=== PATIENT | male | born 1935 | race Caucasian/White ===

== ENCOUNTER 2017-10-24 12:56 | Outpatient (CLI) | payer MEDICARE, OTHER ==
--- NOTE | 2017-10-24 14:56 | RAD ---
TWO VIEWS CHEST: History: Dyspnea. Comparison: None. FINDINGS: Slight elongation of the aorta. Normal cardiac silhouette. The pulmonary vessels and hilum are normal . Costophrenic angles are clear. No mass. No consolidation. No pneumothorax or osseous abnormality. IMPRESSION: No acute cardiopulmonary process. POS: [facility]
== END 2017-10-24 12:57 | disposition home or self-care (01) ==
LOC: RAD 12:56
PROVIDERS: ATTEND Internal Medicine Critical Care Medicine
DX: R06.00 Dyspnea, unspecified (principal)
CPT/HCPCS: 71046

== ENCOUNTER 2019-11-12 08:06 | Outpatient (CLI) | payer MEDICARE, OTHER ==
[2019-11-12 14:33] LABS: Hemoglobin 15.1 g/dL (14.0-18.0); Mean Corpuscular HGB CONC 34.2 g/dL (32.0-36.0); Mean Corpuscular Volume 96.4 fL (78.0-98.0); Mean Platelet Volume 7.5 fL (7.4-10.4); Platelet Count 137 thou/uL (130-400); RBC Distribution Width 11.8 % (11.5-14.5); Red Blood Cell (RBC) Count 4.59 mill/uL (4.70-6.10); White Blood Cell (WBC) Count 4.3 thou/uL (4.8-10.8)
[2019-11-12 15:15] LABS: Anion Gap 14 mmol/L (10-20); BUN (Urea Nitrogen) 24 mg/dL (8.4-25.7); Calc. Creatinine Clearance 0 mL/min (70-130); Calcium 9.3 mg/dL (7.8-10.44); Carbon Dioxide 24 mmol/L (23-31); Chloride 106 mmol/L (98-107); Estimated GFR-MDRD 56; Glucose 102 mg/dL (83-110); Potassium 5.1 mmol/L (3.5-5.1); Sodium 139 mmol/L (136-145)
== END 2019-11-12 08:07 | disposition home or self-care (01) ==
LOC: LABBT 08:06
PROVIDERS: ATTEND Thoracic Surgery (Cardiothoracic Vascular Surgery)
DX: Z01.812 Encounter for preprocedural laboratory examination (principal); I25.10 Atherosclerotic heart disease of native coronary artery without angina pectoris
CPT/HCPCS: 80048; 85027

== ENCOUNTER 2019-11-12 11:00 | Inpatient (IN) | payer MEDICARE, OTHER ==
[2019-11-13 12:33] LABS: SARS-CoV-2 MS2 Positive; SARS-CoV-2 N Gene Negative; SARS-CoV-2 S Gene Negative; SARS-CoV-2 by NAA Not Detected (NotDetected); SARS-CoV-2 orf1ab Negative
[2019-11-17] MEDS ORDERED: Albumin 5% 500 ML ONE (06:29)
[2019-11-17] MEDS ORDERED: Fentanyl 250 MCG/5 ML VIAL ONE (06:43)
[2019-11-17] MEDS ORDERED: Dexmedetomidine 200 MCG/2 ML VIAL ONE (06:44)
[2019-11-17] MEDS ORDERED: Midazolam HCl 5 mg/5 ml Vial ONE (06:44)
[2019-11-17] MEDS ORDERED: Heparin 10,000 UNITS/1 ML VIAL 30,000 UNITS in Sodium Chloride 0.9% 1,000 ML FS SCH (06:45)
[2019-11-17] MEDS ORDERED: PHENYLEPHRINE-NS 100 MCG/ML 10 ML SYRINGE ONE (09:06)
[2019-11-17] MEDS ORDERED: Glycopyrrolate 0.2 MG/ML 5 ML SYRINGE ONE (09:37)
[2019-11-17] MEDS ORDERED: Calcium Chloride 1 GM/10 ML Abboject SYRINGE ONE (09:37)
[2019-11-17] MEDS ORDERED: Magnesium Sulfate 1 GM/2 ML VIAL ONE (09:37)
[2019-11-17] MEDS ORDERED: Protamine Sulfate 250 MG/25 ML VIAL ONE (09:37)
[2019-11-17] MEDS ORDERED: Papaverine 60 MG/2 ML VIAL ONE (09:37)
[2019-11-17] MEDS ORDERED: Ondansetron PF 4 MG/2 ML Vial ONE (09:37)
[2019-11-17] MEDS ORDERED: PROPOFOL 200 MG/20 ML VIAL ONE (09:37)
[2019-11-17] MEDS ORDERED: Thrombin 5000 UNITS/5 ML VIAL ONE (09:37)
[2019-11-17] MEDS ORDERED: Cardioplegic Soln 1,000 ML BAG ONE (09:37)
[2019-11-17] MEDS ORDERED: Lidocaine 2% PF 5 ML VIAL ONE (09:37)
[2019-11-17] MEDS ORDERED: Heparin 30,000 units/30 ml VIAL ONE (09:37)
[2019-11-17] MEDS ORDERED: Nitroglycerin 50 MG/250 ML BOT ONE (09:37)
[2019-11-17] MEDS ORDERED: Heparin 5,000 UNITS/ML VIAL ONE (09:37)
[2019-11-17] MEDS ORDERED: Lidocaine 1% PF 5 ML VIAL ONE (09:37)
[2019-11-17] MEDS ORDERED: Sodium Bicarb 50 MEQ/50 ML Abboject 8.4% SYRINGE ONE (09:37)
[2019-11-17] MEDS ORDERED: Potassium Chloride 60 MEQ/30 ML VIAL ONE (09:37)
[2019-11-17] MEDS ORDERED: Aminocaproic Acid 5 GM/20 ML VIAL ONE (09:37)
[2019-11-17] MEDS ORDERED: Vecuronium 10 MG VIAL ONE (09:37)
[2019-11-17] MEDS ORDERED: Norepinephrine 4 MG/4 ML VIAL ONE (09:40)
[2019-11-17] MEDS ORDERED: Magnesium 2 GM/50 ML 2 GM in Premix Bag 1 BAG IVPB SCH (11:18)
[2019-11-17] MEDS ORDERED: Nitroglycerin 50 MG/250 ML BOT 250 ML IVPB PRN (11:18)
[2019-11-17] MEDS ORDERED: DOPamine 400 MG/D5W 250 ML 250 ML IVPB PRN (11:18)
[2019-11-17] MEDS ORDERED: Acetaminophen 325 MG TAB PO PRN (11:18)
[2019-11-17] MEDS ORDERED: Ondansetron PF 4 MG/2 ML Vial IVP PRN (11:18)
[2019-11-17] MEDS ORDERED: Hetastarch 6% 500 ML 500 ML IVPB PRN (11:18)
[2019-11-17] MEDS ORDERED: Morphine 2 MG/ML VIAL SLOW IVP PRN (11:18)
[2019-11-17] MEDS ORDERED: Potassium Chloride 20 MEQ/100 ML PREMIX BAG IVPB PRN (11:18)
[2019-11-17] MEDS ORDERED: Norepinephrine 8 MG/0.9% NS 250 ML IVPB PRN (11:18)
[2019-11-17] MEDS ORDERED: hydrALAZINE 20 MG/ML VIAL SLOW IVP PRN (11:18)
[2019-11-17] MEDS ORDERED: Guaifenesin DM 100-10/5 ML UDCUP PO PRN (11:18)
[2019-11-17] MEDS ORDERED: Bisacodyl 10 MG SUPP PR PRN (11:18)
[2019-11-17] MEDS ORDERED: Mag-Al 1200 mg/1200 mg/30 ML UDCUP PO PRN (11:18)
[2019-11-17] MEDS ORDERED: Post-Op Insulin Drip Protocol IVPB ONE (11:18)
[2019-11-17] MEDS ORDERED: Fentanyl 100 MCG/2 ML VIAL SLOW IVP PRN ×2 (11:18)
[2019-11-17] MEDS ORDERED: niCARdipine 25 MG in Sodium Chloride 0.9% 250 ML 240 ML IVPB PRN (11:18)
[2019-11-17] MEDS ORDERED: Insulin Regular 300 UNITS/3 ML VIAL SC PRN (11:21)
[2019-11-17] MEDS ORDERED: HUMULIN R 100 UNITS in Sodium Chloride 0.9% 100 ML IVPB SCH (11:21)
[2019-11-17] MEDS ORDERED: Dextrose 5% in Water 1,000 ML IV PRN (11:21)
[2019-11-17] MEDS ORDERED: Dextrose 50% Abboject 50 ML SYRINGE SLOW IVP PRN (11:21)
[2019-11-17] MEDS: Sodium Chloride 0.9% 1,000 ML IV SCH ×2 (12:00→21:09)
--- NOTE | 2019-11-17 12:06 | RAD ---
XR Chest 1 View Portable HISTORY: Postop open heart surgery COMPARISON: 10/24/2017 FINDINGS: Interval changes of median sternotomy are seen. There is a right-sided subclavian central venous cath eter with tip in the projection of the right atrium. Mediastinal drain and left-sided chest tubes have been placed. No pneumothoraces or large effusions are seen. There is atelectatic change in the l eft lung base.
[2019-11-17 12:26] LABS: INR-International Normal Ratio 1.4; PTT 40.4 sec (22.9-36.1); Prothrombin Time 16.8 sec (12.0-14.7)
[2019-11-17 12:38] LABS: Anion Gap 10 mmol/L (10-20); BUN (Urea Nitrogen) 22 mg/dL (8.4-25.7); Calc. Creatinine Clearance 60 mL/min (70-130); Calcium 7.6 mg/dL (7.8-10.44); Carbon Dioxide 24 mmol/L (23-31); Chloride 111 mmol/L (98-107); Estimated GFR-MDRD 66; Glucose 156 mg/dL (83-110); Potassium 4.6 mmol/L (3.5-5.1); Sodium 140 mmol/L (136-145)
[2019-11-17 12:43] VITALS: BMI 30.2
[2019-11-17 12:49] LABS: #Eosinphils 0.1 thou/uL (0.0-0.7); #Lymphocytes 1.4 thou/uL (1.20-3.40); #Monocytes 0.6 thou/uL (0.11-0.59); #Neutrophils 5.8 thou/uL (1.40-6.50); %Basophils 0.4 % (0.0-1.0); %Eosinophils 1.5 % (0.0-10.0); %Lymphocytes 18.1 % (21.0-51.0); %Monocytes 7.3 % (0.0-10.0); %Neutrophils 72.7 % (42.0-75.0); Band 11 % (5-11); Eosinophils 3 % (0-10); Hemoglobin 12.4 g/dL (14.0-18.0); Lymphocytes 20 % (21-51); MDiff Complete? YES; Mean Corpuscular HGB CONC 33.5 g/dL (32.0-36.0); Mean Corpuscular Hemoglobin 32.3 pg (27.0-31.0); Mean Corpuscular Volume 96.5 fL (78.0-98.0); Mean Platelet Volume 7.5 fL (7.4-10.4); Metamyelocyte 1 % (0-0); Monocytes 1 % (0-10); Neutrophil 64 % (42-75); Platelet Count 83 thou/uL (130-400); Platelet Morphology Comment Appears Decreased; Polychromasia SLIGHT = 2-3 cells (100X) (0-2/hpf); RBC Distribution Width 11.7 % (11.5-14.5); Red Blood Cell (RBC) Count 3.84 mill/uL (4.70-6.10)
[2019-11-17 13:05] LABS: Actual Bicarbonate (HCO3a) 22.4 mEq/L (22-28); Base Excess (BEa) -3.5 mEq/L (-2.0 to +3.0); CO2 Tension 43.5 mmHg (35.0-45.0); Calcium, Ionized (arterial) 1.14 mmol/L (1.12-1.30); Hemoglobin (Hb) 13.2 g/dL (14.0-18.0); O2 Tension (PaO2), arterial 129.1 mmHg (> 60.0); Potassium - ABG Lab 4.06 mmol/L (3.70-5.30); pH, Arterial 7.33 (7.35-7.45)
[2019-11-17 13:06] LABS: ALV-art Gradient 244.325 (0-20); Puncture Site ALINE
[2019-11-17] MEDS: CEFAZOLIN 2 GM in Premix Bag 1 BAG IVPB SCH ×2 (13:53→21:12)
--- NOTE | 2019-11-17 17:21 | CON ---
DATE OF CONSULTATION: 11/17/2019 HISTORY OF PRESENT ILLNESS: The patient is an 84-year-old gentleman, who was admitted today after he underwent coronary artery bypass surgery. The patient previous history of coronary artery disease. He was recently seen by Dr. Wood Becker. He underwent a cardiac catheterization, which apparently revealed 3-vessel coronary artery disease. Today, the patient underwent coronary artery bypass surgery x3. The procedure was uncomplicated. The patient is unable to give a coherent history. PAST MEDICAL HISTORY: Significant for; 1. Coronary artery disease. 2. Aortic stenosis. 3. Hypertension. 4. Cerebrovascular disease. 5. History of DVT. 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 He has had cholecystectomy, surgery on zygomatic arch. MEDICATIONS: On admission included; 1. Metoprolol 25 at bedtime. 2. Lisinopril 10 daily. 3. Aspirin 81 daily. ALLERGIES: NO KNOWN DRUG ALLERGIES. REVIEW OF SYSTEMS: Not obtainable. PHYSICAL EXAMINATION: GENERAL: Extubated gentleman, who is sedated. VITAL SIGNS: Blood pressure of 141/74, heart rate is 46. NECK: No jugular venous distention. LUNGS: Clear to auscultation. HEART: Regular rate and rhythm. Normal S1, S2. ABDOMEN: Nondistended. EXTREMITIES: No edema. VASCULAR: Left radial pulses 2+. LABORATORY RESULTS: Sodium 140, potassium 4.6, chloride 111, bicarbonate 24, BUN 22, creatinine 1.0, glucose 156. DIAGNOSTIC DATA: EKG revealed marked sinus bradycardia, otherwise normal ECG. IMPRESSION AND PLAN: 1. Status post coronary artery bypass surgery. 2. Hypertension. 3. History of cerebrovascular disease. 4. Dyslipidemia. 5. History of deep venous thrombosis. This gentleman underwent coronary artery bypass graft surgery from a cardiac standpoint. He should be on aspirin and lipid-lowering medication for secondary prevention. We would recommend a high-intensity statin. We will follow this patient with you throughout his hospitalization. Job ID: [id number]
[2019-11-17 18:06] LABS: Hemoglobin 12.6 g/dL (14.0-18.0)
[2019-11-17 18:15] LABS: Potassium 4.2 mmol/L (3.5-5.1)
[2019-11-17 18:16] LABS: Glucose 114 mg/dL (83-110)
[2019-11-17] MEDS ORDERED: Atorvastatin Calcium 10 MG TAB PO SCH (21:00)
[2019-11-17] MEDS: Enoxaparin Sodium 40 MG/0.4 ML SYRINGE SC SCH (21:09)
[2019-11-17] MEDS: Atorvastatin Calcium 40 MG TAB PO SCH (21:09)
[2019-11-17] MEDS: Famotidine/PF 20 mg/2ml Vial SLOW IVP SCH (21:09)
[2019-11-18 07:22] LABS: Anion Gap 13 mmol/L (10-20); BUN (Urea Nitrogen) 25 mg/dL (8.4-25.7); Calc. Creatinine Clearance 67 mL/min (70-130); Calcium 7.7 mg/dL (7.8-10.44); Carbon Dioxide 21 mmol/L (23-31); Chloride 110 mmol/L (98-107); Estimated GFR-MDRD 66; Glucose 122 mg/dL (83-110); Potassium 4.4 mmol/L (3.5-5.1); Sodium 140 mmol/L (136-145)
--- NOTE | 2019-11-18 07:33 | OP ---
DATE OF PROCEDURE: 11/17/2019 PREOPERATIVE DIAGNOSIS: Coronary artery disease. PROCEDURE PERFORMED: Coronary artery bypass graft x3, left internal mammary artery somewhat small to a 1.5 mm left anterior descending, saphenous vein graft, and slightly large to a 1.5 mm diagonal, and a 1.5 mm OM2. The OM1 was felt to be too small to graft given the size of the vein and the size of the coronary. SINGE MACHINE OPERATOR: Dr. Vasquez. TRANSFUSION: None. DESCRIPTION OF PROCEDURE: After adequate anesthesia had been obtained, I performed a median sternotomy and Dr. Vasquez started an endovascular vein harvest of the right greater saphenous vein and then converted it to an open harvest. After opening the sternum, left internal mammary artery was harvested. After heparinization, it was divided distally and passed posterior to the thymus gland and treated with intraluminal papaverine. Aorta and right atrium were cannulated. Cardiopulmonary bypass was begun. The vessels were inspected for grafting. The aorta crossclamped and a liter of cold blood cardioplegia given through the aortic root. The saphenous vein was then anastomosed to the OM2. This was not a very large vessel and it had looked significantly larger than the OM1. Following this, the diagonal was opened and saphenous vein anastomosed to this 1.5 mm vessel and finally FELTON to LAD. Following this, the crossclamp was removed and the partial occluding clamp placed and 2 venous anastomosis performed on the aortic root and marked with rings. Following completion of this, the patient was weaned from cardiopulmonary bypass after inspecting distal anastomosis. Cannula was removed and the aortic cannulation site secured with a running 4-0 Prolene suture. Following this, mediastinal and left pleural drains were placed and the sternum was then reapproximated with #7 interrupted wire using vancomycin paste on the sternal edges, platelet-rich blood and platelet-poor plasma. Subcutaneous tissue and skin were closed in layers. Job ID: [id number]
[2019-11-18] MEDS ORDERED: Aspirin 325 MG TAB PO SCH (09:00)
--- NOTE | 2019-11-18 09:14 | RAD ---
CHEST 1 VIEW PORTABLE: Date: 11/18/2019 HISTORY: Postop open heart. COMPARISON: 11/17/2019. FINDINGS: Postop midline sternotomy. Chest tubes in place. Right central line in place. Minimal increased aramis ngs in the left mid and lower lung zones showing slight improvement. No pneumothorax. IMPRESSION: Minimally improving postoperative change. No acute process. POS: [facility]
[2019-11-18] MEDS: CEFAZOLIN 2 GM in Premix Bag 1 BAG IVPB SCH (09:30)
[2019-11-18] MEDS: Sodium Chloride 0.9% 1,000 ML IV SCH ×2 (09:30→17:27)
[2019-11-18 10:23] LABS: #Monocytes 0.9 thou/uL (0.11-0.59); #Neutrophils 5.1 thou/uL (1.40-6.50); %Basophils 0.1 % (0.0-1.0); %Eosinophils 0.1 % (0.0-10.0); %Monocytes 12.8 % (0.0-10.0); %Neutrophils 73.1 % (42.0-75.0); Hemoglobin 11.2 g/dL (14.0-18.0); Mean Corpuscular HGB CONC 33.6 g/dL (32.0-36.0); Mean Platelet Volume 7.1 fL (7.4-10.4); Platelet Count 100 thou/uL (130-400); RBC Distribution Width 11.5 % (11.5-14.5); Red Blood Cell (RBC) Count 3.41 mill/uL (4.70-6.10); White Blood Cell (WBC) Count 6.9 thou/uL (4.8-10.8)
--- NOTE | 2019-11-18 10:26 | EKG ---
Test Reason : POST CABG Blood Pressure : / mmHG Vent. Rate : 048 BPM Atrial Rate : 048 BPM P-R Int : 204 ms QRS Dur : 096 ms QT Int : 508 ms P-R-T Axes : 029 -10 -10 degrees QTc Int : 453 ms Marked sinus bradycardia Abnormal ECG No previous ECGs available Confirmed by JACKSON ROTH M.D. ([id number]) on 11/18/2019 10:26:39 AM Referred By: RADHA Confirmed By:JACKSON ROTH M.D.
[2019-11-18] MEDS: Famotidine/PF 20 mg/2ml Vial SLOW IVP SCH (10:47)
[2019-11-18] MEDS: HYDROcodone/Acetaminophen 5/325 mg Tablet PO PRN ×3 (10:48→20:14)
[2019-11-18] MEDS ORDERED: Nitroglycerin 0.4 MG TAB (25 Tab Bottle) SL PRN (17:29)
[2019-11-18] MEDS ORDERED: Aspirin 81 mg Enteric Coated Tablet PO SCH (17:30)
[2019-11-18] MEDS: Famotidine 20 MG TAB PO SCH (20:13)
[2019-11-18] MEDS: Metoprolol Tartrate 25 MG TAB PO SCH (20:13)
[2019-11-18] MEDS: Atorvastatin Calcium 40 MG TAB PO SCH (20:14)
[2019-11-18] MEDS: Enoxaparin Sodium 40 MG/0.4 ML SYRINGE SC SCH (20:15)
[2019-11-19] MEDS: HYDROcodone/Acetaminophen 5/325 mg Tablet PO PRN ×5 (01:19→17:46)
[2019-11-19 04:39] LABS: #Eosinphils 0.1 thou/uL (0.0-0.7); #Lymphocytes 1.5 thou/uL (1.20-3.40); #Neutrophils 4.5 thou/uL (1.40-6.50); %Basophils 0.6 % (0.0-1.0); %Eosinophils 1.1 % (0.0-10.0); %Lymphocytes 21.3 % (21.0-51.0); %Monocytes 14.2 % (0.0-10.0); %Neutrophils 62.8 % (42.0-75.0); Hemoglobin 10.4 g/dL (14.0-18.0); Mean Corpuscular HGB CONC 33.9 g/dL (32.0-36.0); Mean Corpuscular Hemoglobin 33.6 pg (27.0-31.0); Mean Corpuscular Volume 99.2 fL (78.0-98.0); Mean Platelet Volume 7.2 fL (7.4-10.4); Platelet Count 83 thou/uL (130-400); RBC Distribution Width 11.6 % (11.5-14.5); Red Blood Cell (RBC) Count 3.09 mill/uL (4.70-6.10); White Blood Cell (WBC) Count 7.2 thou/uL (4.8-10.8)
[2019-11-19 04:54] LABS: Anion Gap 10 mmol/L (10-20); BUN (Urea Nitrogen) 25 mg/dL (8.4-25.7); Calc. Creatinine Clearance 64 mL/min (70-130); Calcium 7.8 mg/dL (7.8-10.44); Carbon Dioxide 23 mmol/L (23-31); Chloride 107 mmol/L (98-107); Estimated GFR-MDRD 63; Glucose 121 mg/dL (83-110); Potassium 4.2 mmol/L (3.5-5.1); Sodium 136 mmol/L (136-145)
[2019-11-19] MEDS ORDERED: Furosemide 40 MG TAB PO SCH (09:00)
[2019-11-19] MEDS ORDERED: Furosemide 40 MG/4 ML VIAL SLOW IVP SCH (09:00)
[2019-11-19] MEDS: Aspirin 81 mg Enteric Coated Tablet PO SCH (09:09)
[2019-11-19] MEDS: Metoprolol Tartrate 25 MG TAB PO SCH ×2 (09:09→21:15)
[2019-11-19] MEDS: Famotidine 20 MG TAB PO SCH ×2 (09:09→21:15)
[2019-11-19] MEDS: Bisacodyl 5 MG TAB PO PRN (15:40)
[2019-11-19] MEDS: Enoxaparin Sodium 40 MG/0.4 ML SYRINGE SC SCH (21:15)
[2019-11-19] MEDS: Atorvastatin Calcium 40 MG TAB PO SCH (21:15)
[2019-11-20] MEDS: Metoprolol Tartrate 25 MG TAB PO SCH (08:47)
[2019-11-20] MEDS: Famotidine 20 MG TAB PO SCH ×2 (08:47→20:46)
[2019-11-20] MEDS: Aspirin 81 mg Enteric Coated Tablet PO SCH (08:47)
[2019-11-20] MEDS: Bisacodyl 5 MG TAB PO PRN (08:49)
[2019-11-20] MEDS ORDERED: Furosemide 40 MG TAB PO SCH (09:00)
--- NOTE | 2019-11-20 14:02 | RAD ---
AP CHEST: 11/20/19 INDICATIONS: Hypertension. COMPARISON: 11/18/19. Hazy infiltrate and/or atelectasis in the left lung base appears stable. Upper lung isaac remain bill ar. Postop sternotomy change. Central line is unchanged. Left chest drainage tube has been removed. N o evidence of pneumothorax. IMPRESSION: Continued left basilar atelectasis and/or infiltrate without interval change. POS: [facility]
[2019-11-20 14:06] LABS: #Basophils 0.1 thou/uL (0.0-0.2); #Eosinphils 0.1 thou/uL (0.0-0.7); #Lymphocytes 3.4 thou/uL (1.20-3.40); #Monocytes 0.5 thou/uL (0.11-0.59); #Neutrophils 4.2 thou/uL (1.40-6.50); %Basophils 0.9 % (0.0-1.0); %Eosinophils 1.2 % (0.0-10.0); %Lymphocytes 41.5 % (21.0-51.0); %Monocytes 6.1 % (0.0-10.0); %Neutrophils 50.3 % (42.0-75.0); Hemoglobin 12.2 g/dL (14.0-18.0); Mean Corpuscular HGB CONC 33.1 g/dL (32.0-36.0); Mean Corpuscular Hemoglobin 32.8 pg (27.0-31.0); Mean Corpuscular Volume 98.9 fL (78.0-98.0); Mean Platelet Volume 7.9 fL (7.4-10.4); Platelet Count 136 thou/uL (130-400); RBC Distribution Width 11.7 % (11.5-14.5); Red Blood Cell (RBC) Count 3.72 mill/uL (4.70-6.10); White Blood Cell (WBC) Count 8.3 thou/uL (4.8-10.8)
--- NOTE | 2019-11-20 14:11 | PRG ---
DATE OF SERVICE: 11/20/2019 Brayden fagan was called when the patient was in the bathroom. He had a large BM with lower abdominal discomfort at the same time. He was noted to be pale, hypotensive with a blood pressure of 70. He was placed back in bed and began receiving a liter of IV fluids, and in that process, the blood pressure returned initially to 100 and then to 120. His heart rate was in the 60 range. He had received a dose of metoprolol 12.5 mg earlier that morning as well as a dose of p.o. Lasix. He was complaining of lower abdominal discomfort related to his bowel movement, but otherwise no complaints. His lungs are clear. His chest incision besides the bruising appears to be doing well with no signs of infection. His abdomen is soft at this time with some mild lower suprapubic abdominal discomfort. Suspect some sort of a vagal reaction. Chest x-ray being normal. EKG being close to baseline. I have reviewed his cardiac cath films and operative report. Routine lab work is pending. Job ID: [id number]
[2019-11-20 14:27] LABS: Anion Gap 16 mmol/L (10-20); BUN (Urea Nitrogen) 27 mg/dL (8.4-25.7); Calc. Creatinine Clearance 52 mL/min (70-130); Calcium 8.4 mg/dL (7.8-10.44); Carbon Dioxide 20 mmol/L (23-31); Chloride 103 mmol/L (98-107); Estimated GFR-MDRD 50; Glucose 173 mg/dL (83-110); Potassium 3.6 mmol/L (3.5-5.1); Sodium 135 mmol/L (136-145)
--- NOTE | 2019-11-20 15:01 | ULT ---
EXAM: Bilateral lower extremity venous ultrasound HISTORY: Lower extremity swelling and edema COMPARISON: None TECHNIQUE: Multiplanar grayscale and color Doppler images were obtained in a bilateral lower extremit y venous ultrasound. Spectral analysis of the Doppler waveforms were performed. FINDINGS: The bilateral common femoral vein, profunda femoral veins, superficial femoral veins, and p opliteal veins are normal in appearance without visible thrombus. These vessels demonstrate normal compression, flow, and augmentation. The bilateral posterior tibial veins, profunda femoral veins and greater saphenous veins are patent w ithout evidence of DVT. IMPRESSION: No evidence of DVT in the left or right lower extremity.
[2019-11-20] MEDS: Enoxaparin Sodium 40 MG/0.4 ML SYRINGE SC SCH (20:47)
[2019-11-21] MEDS: Famotidine 20 MG TAB PO SCH ×2 (08:58→20:37)
[2019-11-21] MEDS: Aspirin 81 mg Enteric Coated Tablet PO SCH (08:58)
[2019-11-21] MEDS: Metoprolol Tartrate 25 MG TAB PO SCH (20:37)
[2019-11-21] MEDS: Enoxaparin Sodium 40 MG/0.4 ML SYRINGE SC SCH (20:38)
[2019-11-22] MEDS: Famotidine 20 MG TAB PO SCH (09:58)
[2019-11-22] MEDS: Aspirin 81 mg Enteric Coated Tablet PO SCH (09:58)
[2019-11-22] MEDS: Metoprolol Tartrate 25 MG TAB PO SCH (10:00)
[2019-11-22 12:18] VITALS: BP 140/70; TEMP 98
--- NOTE | 2019-11-22 21:20 | DIS ---
DATE OF ADMISSION: 11/17/2019 DATE OF DISCHARGE: 11/22/2019 HOSPITAL COURSE: The patient was admitted for elective coronary artery bypass grafting on 11/16. Surgery was uneventful and consisted of bypass grafting to the LAD, diagonal, and OM2. The OM1 was felt to be too small to graft. Postoperatively, he received no perioperative transfusions. He did have PVCs noted regularly on his EKG. He progressed well in sinus rhythm, but did have a vasovagal reaction related to a bowel movement on 11/19, in which he became diaphoretic and hypotensive. He was given some fluid and responded well and had no further episodes. He was monitored for an additional 48 hours and did have a short run of SVT. He will be discharged home today with instructions to take half of his metoprolol succinate 25 mg tablet a day, aspirin 81 a day, and his [id number] medicines. He is elected not to take Lipitor, and I will follow up with him in about 2 weeks. Discharge and followup instructions have been given and discharge weight is 190 pounds. Job ID: [id number]
--- NOTE | 2019-11-23 15:44 | EKG ---
Test Reason : CODE GREEN Blood Pressure : / mmHG Vent. Rate : 082 BPM Atrial Rate : 082 BPM P-R Int : 154 ms QRS Dur : 094 ms QT Int : 396 ms P-R-T Axes : 031 -03 016 degrees QTc Int : 462 ms Sinus rhythm with occasional Premature ventricular complexes Otherwise normal ECG When compared with ECG of 17-NOV-2019 11:56, Premature ventricular complexes are now Present Vent. rate has increased BY 34 BPM Non-specific change in ST segment in Inferior leads Confirmed by JACKSON ROTH M.D. ([id number]) on 11/23/2019 3:43:38 PM Referred By: RADHA Confirmed By:JACKSON ROTH M.D.
--- NOTE | 2019-11-24 03:13 | PQF ---
CLINICAL DOCUMENTATION CLARIFICATION FORM: Dear : Keven Briones Date / Time: 11/24/19311 Please exercise your independent, professional judgment in responding to the clarification form. Clinical indicators are provided on the bottom of this form for your review Please check appropriate box(s): [ ] Hypovolemic Shock [ ] Cardiogenic Shock [ ] Postoperative shock unspecified [ ] Shock Unspecified [y ] Other diagnosis __vasovagal reaction [ ] Unable to determine In addition, please specify: Present on Admission (POA): [ ] Yes [ y ] No [ ] Unable to determine Physician Signature: Date/Time: For continuity of documentation, please document condition throughout progress notes and discharge summary. Thank You. To be completed by CDI/Coding staff for physician review: Present Clinical Indicators - Signs / Symptoms / Labs Results and Location in Medical Record [X] BP 111/63, Pulse 60, Resp 15 Vital signs 11/16 [X] BP 85/49; 113/57; 110/55, Pulse 84, Resp 20 Vital signs 11/17 [X] BP 101/56; 108/54; 109/54, Pulse 81, Resp 16 Vital signs 11/18 [X] He was noted to be pale, hypotensive with BP of 70 PN p1 11/19 Dr Briones [X] His heart rate was in the 60 range PN p1 11/19 Dr Briones [X] He progressed well in sinus rhythm, but did have a vasovagal reaction related to a bowel movement on 11/19, in which he became diaphoretic and hypotensive DS p1 11/21 Dr Briones Present Risk Factors Results and Location in Medical Record [X] 84 year-old Male Scanned H&P [X] CAD s/p CABG Scanned H&P [X] HTN Scanned H&P [X] PVC DS p1 11/21 Dr Briones [X] SVT DS p1 11/21 Dr Briones Present Treatments Results and Location in Medical Record [X] IVF bolus 1L MAY 10 [X] Aspirin 81 mg oral MAY 10 [X] Dopamine 400 mg/D5w 250 IV MAY 10 [X] IV Lasix 40 MAY 10 [X] Cardiology Consult Consult 11/16 CDS/Insole Cementer Signature: Becca Vagraschandni Phone #: [phone] Date/Time: 11/24/2019 0312 This is a permanent part of the Medical Record [facility]
== END 2019-11-22 15:30 | disposition home or self-care (01) | DRG 236 ==
LOC: SURG A 11-17 06:07 → CCU 11-17 11:00 → 2NO 11-18 18:34
PROVIDERS: ADMIT Thoracic Surgery (Cardiothoracic Vascular Surgery); ATTEND Thoracic Surgery (Cardiothoracic Vascular Surgery)
PROC: 021109W Bypass Coronary Artery, Two Arteries from Aorta with Autologous Venous Tissue, Open Approach (ICD-10-PCS; principal; 2019-11-17)
PROC: 02100Z9 Bypass Coronary Artery, One Artery from Left Internal Mammary, Open Approach (ICD-10-PCS; 2019-11-17)
PROC: 06BP0ZZ Excision of Right Saphenous Vein, Open Approach (ICD-10-PCS; 2019-11-17)
PROC: 5A1221Z Performance of Cardiac Output, Continuous (ICD-10-PCS; 2019-11-17)
DX: I25.110 Atherosclerotic heart disease of native coronary artery with unstable angina pectoris (principal); I47.1 Supraventricular tachycardia; I49.3 Ventricular premature depolarization; Z20.828 Contact with and (suspected) exposure to other viral communicable diseases; I10 Essential (primary) hypertension; I65.22 Occlusion and stenosis of left carotid artery; I35.0 Nonrheumatic aortic (valve) stenosis; R00.1 Bradycardia, unspecified; I95.9 Hypotension, unspecified; R10.30 Lower abdominal pain, unspecified; Z79.899 Other long term (current) drug therapy; Z79.82 Long term (current) use of aspirin; Z86.73 Personal history of transient ischemic attack (TIA), and cerebral infarction without residual deficits
CPT/HCPCS: 36415; 36416; 36430; 71045; 80048; 82805; 85025; 85610; 85730; 86850; 86900; 86901; 87635; 93005; 93010; 93798; 93970; 94660; J0690; J1265; J1642; J1644; J1650; J1815; J1940; J2250; J2405; J2440; J2704; J2720; J3010; J3370; J3475; J3480; J3490; P9045; S0017; S0028; U0003

== ENCOUNTER 2019-12-07 14:08 | Inpatient (IN) | payer MEDICARE, OTHER ==
[~2019-12-07 14:08] MED LIST: Iopamidol 370 76% 100 ML VIAL ONE
[2019-12-07 14:35] LABS: #Lymphocytes 0.6 thou/uL (1.20-3.40); #Monocytes 0.6 thou/uL (0.11-0.59); #Neutrophils 8.3 thou/uL (1.40-6.50); %Basophils 0.3 % (0.0-1.0); %Eosinophils 0.3 % (0.0-10.0); %Lymphocytes 6.4 % (21.0-51.0); %Monocytes 6.6 % (0.0-10.0); %Neutrophils 86.5 % (42.0-75.0); Hemoglobin 12.3 g/dL (14.0-18.0); Mean Corpuscular HGB CONC 32.7 g/dL (32.0-36.0); Mean Corpuscular Hemoglobin 31.1 pg (27.0-31.0); Mean Corpuscular Volume 95.2 fL (78.0-98.0); Mean Platelet Volume 6.6 fL (7.4-10.4); Platelet Count 269 thou/uL (130-400); RBC Distribution Width 12.6 % (11.5-14.5); Red Blood Cell (RBC) Count 3.97 mill/uL (4.70-6.10); White Blood Cell (WBC) Count 9.6 thou/uL (4.8-10.8)
--- NOTE | 2019-12-07 14:45 | RAD ---
XR Chest 1 View Portable HISTORY: Sepsis, knee infection COMPARISON: 11/20/2019 FINDINGS: The heart size is normal. The aorta is tortuous. Changes of median sternotomy are again see n. The lungs are well expanded without focal areas of consolidation, pneumothorax or pleural effusions. IMPRESSION: No radiographic evidence of acute cardiopulmonary process.
[2019-12-07] MEDS ORDERED: Cefepime 1 GM VIAL ONE (15:01)
[2019-12-07 15:03] LABS: ALT (SGPT) 12 U/L (8-55); AST (SGOT) 17 U/L (5-34); Albumin 4.1 g/dL (3.4-4.8); Alkaline Phosphatase 142 U/L (40-110); Anion Gap 14 mmol/L (10-20); BUN (Urea Nitrogen) 25 mg/dL (8.4-25.7); Calc. Creatinine Clearance 0 mL/min (70-130); Calcium 9.6 mg/dL (7.8-10.44); Carbon Dioxide 25 mmol/L (23-31); Chloride 103 mmol/L (98-107); Estimated GFR-MDRD 47; Globulin 3.4 g/dL (2.4-3.5); Glucose 131 mg/dL (83-110); Potassium 4.2 mmol/L (3.5-5.1); Protein, Total 7.5 g/dL (5.8-8.1); Sodium 138 mmol/L (136-145)
--- NOTE | 2019-12-07 15:32 | ULT ---
EXAM: Right lower extremity venous Doppler US HISTORY: Right lower extremity edema and pain. Recent triple bypass surgery using the right leg veins FINDINGS: Grayscale, color-flow, Doppler evaluation, spectral analysis of the right lower extremity venous stru ctures is performed with 2-D imaging. The right common femoral, superficial femoral, popliteal, posterior tibial, proximal greater saphenous and profunda femoral veins are imaged. There is normal luminal compressibility, flow, and augmentation the visualized deep venous structures of the right lower extremity. There is a complex cystic area in the right medial calf, just below the knee without internal flow, m easuring 17.4 x 2.1 x 3 cm, likely postop hematoma. IMPRESSION: No evidence of a deep vein thrombosis in the right lower extremity.
[2019-12-07] MEDS ORDERED: Acetaminophen 500 MG TAB ONE (15:55)
--- NOTE | 2019-12-07 16:44 | CT ---
EXAM: CT Lower Ext Rt W Con PROVIDED CLINICAL HISTORY: Right lower extremity pain. Patient sent over from clinic secondary to hematoma versus infection invo lving the right knee. COMPARISON: Right lower extremity venous ultrasound ON 12/07/2019 FINDINGS: As noted on the CT scan examination, there is a tubular hypodense fluid collection with areas of slig ht increased density within this collection involving the medial aspect of the left knee. This collection extends from the level of the femoral metaphysis to the junction of the proximal and middl e one third tibial diaphysis. Largest portion of this collection is seen adjacent the proximal tibial diaphysis measuring 3.8 cm x 1.9 cm. However, the majority of the collection is smaller in siz e and demonstrates a tubular configuration measuring approximately 1.8 cm in diameter. Slightly larger area of the collection is seen adjacent to the femoral diaphysis measuring 2.5 cm x 1.9 cm in greatest axial dimensions. At the level of the superior aspect of the femoral condyles, there is what appears to be small soft tissue defect with associated punctate foci of gas. This could potentia lly be related to site of injury in the correct clinical scenario and development of hematoma tracking along the medial aspect of the right knee. Superimposed infection cannot be entirely exclude d. Subcutaneous edema is seen about the right knee greater medially. There is minimal skin thickening al pollo the medial aspect of the visualized right lower extremity/knee. Cellulitis cannot be excluded based on this exam. Extensive vascular calcifications are seen in the distal femoral, popliteal, and visualized tibial pe roneal vessels. Mild degenerative changes are seen at the knee. No fracture or dislocation is identified. IMPRESSION: 1. As noted on recent ultrasound examination, there is a complex tubular fluid collection extending a long the medial aspect of the left knee as described above with areas of increased density present within the collection. This could be related to hematoma. There are punctate foci of gas seen adjacen t to what appears to be small soft tissue defect at the level of the femoral condyle which could be related to site of injury or laceration in the correct clinical scenario versus draining wound. Assoc iated infection of a hematoma is a possibility. 2. Subcutaneous edema and fluid with mild skin thickening present. Findings could be related to cellu litis in the correct clinical scenario. 3. Extensive vascular calcifications. 4. No acute osseous abnormality.
[2019-12-07 18:12] LABS: Lactic Acid 0.9 mmol/L (0.5-2.2)
[2019-12-07 18:56] LABS: Bilirubin Negative (Negative); Blood, Urine Negative (Negative); Clarity Clear (Clear); Glucose, Urine (Dipstick) Normal (Negative); Ketone, Urine Negative (Negative); Leukocyte Negative Leu/uL (Negative); Nitrite Negative (Negative); Protein, Urine (Dipstick) 20 mg/dL (Neg-Trace); Urobilinogen Normal mg/dL (Less than 2)
[2019-12-07 18:57] LABS: Specific Gravity, Urine 1.048 (1.002-1.036)
[2019-12-07] MEDS ORDERED: Acetaminophen 650 MG Suppository PR PRN (19:17)
[2019-12-07] MEDS ORDERED: Acetaminophen 325 MG TAB PO PRN (19:17)
[2019-12-07] MEDS ORDERED: Senokot S 8.6-50 MG TAB PO PRN (19:17)
[2019-12-07] MEDS ORDERED: Sodium Chloride 0.9% 1,000 ML IV SCH (19:30)
[2019-12-07] MEDS ORDERED: Famotidine 20 MG TAB PO SCH (21:00)
[2019-12-07 21:29] VITALS: BMI 26.2
--- NOTE | 2019-12-07 21:41 | HP ---
TIME OF ASSESSMENT: 1800 hours. CHIEF COMPLAINT: Swelling to right lower extremity and serosanguinous drainage from recent graft site. HISTORY OF PRESENT ILLNESS: Mr. Jones is a pleasant 84-year-old gentleman, who was scheduled to follow up with Dr. Briones in the clinic today at 1:00 p.m. and had developed drainage from the recent graft site on the posteromedial aspect of the right calf with persistent lower extremity swelling and erythema. Upon evaluation, there was concern for possibility of infection. The patient states that Dr. Briones attempted to push out any apparently purulent material from the wound, but all that came out was serosanguinous fluid. He states he did have a temperature of 101 today. States the swelling has been stable and unchanged since discharge. Denies having any fevers or chills in recent days and prior to today. He was recommended IV antibiotics and admission to the hospital. The patient had been discharged from the hospital on 11/21 after undergoing an elective CABG on 11/16. He states he has done well at home. Denies having any issues with chest pain, palpitations, or shortness of breath. Denies having any headaches or dizziness. Denies any urinary symptoms or bowel changes. He is tolerating p.o. intake without any difficulties. All other review of systems apart from those mentioned above in HPI are negative. EMERGENCY DEPARTMENT COURSE: In the emergency department, he underwent an EKG that showed normal sinus rhythm with a heart rate of 98. He is noted to have PVCs. Also left bundle-branch block with T-wave inversions in V5 and V6. Laboratory studies were done, notable for white count of 9.6, hemoglobin 12.3, hematocrit 37.8, platelets 269, neutrophils 86.5%. BUN was 25, creatinine 1.43, slightly elevated from 1.35 on 11/20/2019. Lactic acid mildly elevated at 2.3 and repeat lactic acid was 0.9. LFT showed an alkaline phosphatase of 142, otherwise unremarkable. Urinalysis was done and unremarkable. Chest x-ray done showing no radiographic evidence of acute cardiopulmonary process. Aorta was said to be tortuous. Heart size normal. Median sternotomy changes seen. He had a right lower extremity venous Doppler done showing no evidence of DVT in the right lower extremity. There was a complex cystic area noted in the right medial calf just below the knee without internal flow, measuring 17.4 x 2.1 x 3 cm, felt to represent a postoperative hematoma. CT was done of the right lower extremity again showing a complex tubular fluid collection extending along the medial aspect of the left knee with areas of increased density present within the collection. Langford to be related to hematoma. Punctate foci of seen with a small soft tissue defect at the level of the femoral condyle felt to be related to site of injury or draining wound site. Langford to represent infection of a hematoma. Subcutaneous edema and fluid with mild skin thickening present. Findings felt to be related to cellulitis. Extensive vascular calcifications present. No acute osseous abnormalities noted. The patient was started on IV antibiotics with vancomycin and cefepime for suspected infected hematoma. He was given 500 mL of normal saline. For pain, he received 1 g of Tylenol. Case was discussed between ED physician and Dr. Briones who plans to see him in the morning. Wound cultures obtained. PAST MEDICAL HISTORY: 1. CAD. 2. Aortic stenosis. 3. Hypertension. 4. Cerebrovascular disease. 5. History of DVT in the past. PAST SURGICAL HISTORY: 1. Tonsillectomy. 2. 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 3. 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 4. Removal of anal polyps in 1998. 5. Inguinal hernia repair in 1994. 6. Cholecystectomy. 7. Elective CABG on 11/18/2019. 8. Left carotid surgery. SOCIAL HISTORY: The patient is fully independent. He lives with his family. Denies any history of tobacco use or alcohol consumption. No illicit drug use. FAMILY HISTORY: Father at 94 years, diagnosed with hypertension and heart disease. Mother at 89 years, diagnosed with stroke and cancer. ALLERGIES: NO KNOWN DRUG ALLERGIES. CURRENT MEDICATIONS: 1. CoQ10. 2. Esomeprazole. 3. Aspirin. 4. Fluorouracil 2% topical. 5. Metoprolol succinate. 6. Vitamin D3. 7. Fish oil. PHYSICAL EXAMINATION: GENERAL: The patient appears well developed, well nourished, in no acute distress. He is resting comfortably in the stretcher. VITAL SIGNS: Temperature 98.8, pulse 90, blood pressure 119/68, respirations 20, O2 saturation 100% on room air. HEENT: Normocephalic and atraumatic. Pupils are equal, round, reactive to light. Sclerae without icterus. Oropharynx is clear. NECK: Supple. LUNGS: Clear bilaterally without any wheezes, rales, or rhonchi. CARDIAC: Regular rate and rhythm. Normal S1 and S2. Well healing incision from recent sternotomy. No erythema, wound dehiscence, or drainage. ABDOMEN: Soft, nontender, nondistended. Normoactive bowel sounds present. No guarding or rigidity. EXTREMITIES: Right lower extremity notable for significant swelling from the ankle up to the knee. Warm to touch with erythematous changes at the graft site. No active drainage. . No discoloration to the foot. Minimal discomfort. SKIN: Remaining skin is without any changes. Normal skin turgor. NEUROLOGIC: Alert and oriented x3. No neuro deficits on exam. INVESTIGATIONS: As mentioned above in HPI. IMPRESSION AND PLAN: Mr. Jones is an 84-year-old gentleman, who was recently discharged from the hospital on 11/22/2019 after undergoing elective coronary artery bypass graft done by Dr. Briones. He is returning with persistent right lower extremity swelling and serosanguinous drainage from the graft site and being admitted for management of the following. 1. Cellulitis versus infected hematoma to right lower extremity. The patient also started on IV antibiotics with vancomycin and cefepime as per recommendations by Dr. Briones. Pharmacy to dose vancomycin. Cultures sent in and pending. Lactic acid has improved. 2. Mild diabetic ketoacidosis. Creatinine slightly bumped from creatinine on last admission. He received 100 mL of normal saline in the emergency department. We will continue very gentle hydration and continue to monitor renal function. 3. Hypertension. Monitor blood pressure and resume home medications as appropriate once verified. 4. Coronary artery disease. Resume home medications once verified. 5. Gastrointestinal prophylaxis with famotidine. 6. Deep venous thrombosis prophylaxis. No mechanical SCDs given degree of swelling in the right lower extremity. No pharmacological prophylaxis given recent serosanguinous drainage from graft site. The patient is ambulatory. 7. Code status, full. Surrogate decision maker is his , Nannette Jones. Case was discussed with attending who agrees with plan of care as described above. Job ID: [id number]
--- NOTE | 2019-12-08 01:08 | CON ---
DATE OF CONSULTATION: HISTORY OF PRESENT ILLNESS: This is an 84-year-old gentleman who underwent coronary artery bypass grafting on 11/16 after being referred by Dr. Becker for coronary artery disease. He was doing well until yesterday. He developed some pain in his left medial thigh and upper calf and has been having difficulty walking around since that time. He presented to my office today for evaluation, was noted to have 101 fever and was somewhat shaky and his movements appeared weak. His examination at that time suggested cellulitis of the right leg and it was felt that admission to the hospital should be undertaken as well as ruling out DVT in the right leg and ruling out any other source of fever such as urinary tract infection. PAST MEDICAL HISTORY: Includes hypertension, coronary artery disease, carotid artery disease, and remote DVT of his leg. 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 SOCIAL HISTORY: The patient is a nonsmoker. He is . Lives in [facility] with his . ALLERGIES: HE HAS NO KNOWN ALLERGIES. CURRENT MEDICATIONS: Include: 1. Aspirin 81. 2. Pantoprazole 40. 3. Metoprolol ER 25 half tablet daily. PHYSICAL EXAMINATION: GENERAL: On examination, he is alert, cooperative patient. VITAL SIGNS: Temperature 101.3, heart rate 97, blood pressure 150/90, weight 179. NECK: No carotid bruits. CARDIAC: Regular rate and rhythm with systolic murmur in the mitral area. LUNGS: Clear to auscultation. Sternal incision clean, dry, without erythema and sternum stable. ABDOMEN: Soft, nontender. No masses. EXTREMITIES: He has brown pigmentation in both lower extremities. He has slight amount of bloody drainage from just above the medial aspect of his left knee. This incision was opened somewhat in the office and a small amount of bloody drainage was removed, but no clot. There is surrounding cellulitis in this area as well as extending slightly below the knee. He does have 1+ edema in his right leg. He has palpable femoral and dorsalis pedis pulses. The patient should be admitted for IV antibiotics, local wound care and then reinstitution of cardiac rehab as he becomes more stable on his feet. Job ID: [id number]
[2019-12-08] MEDS: Cefepime 1 GM in Sodium Chloride 0.9% 100 ML IVPB SCH ×2 (03:44→14:21)
[2019-12-08 06:09] LABS: #Lymphocytes 0.7 thou/uL (1.20-3.40); #Monocytes 0.7 thou/uL (0.11-0.59); #Neutrophils 3.8 thou/uL (1.40-6.50); %Basophils 0.5 % (0.0-1.0); %Eosinophils 0.8 % (0.0-10.0); %Lymphocytes 13.3 % (21.0-51.0); %Neutrophils 71.4 % (42.0-75.0); Hemoglobin 10.3 g/dL (14.0-18.0); Mean Corpuscular HGB CONC 33.6 g/dL (32.0-36.0); Mean Corpuscular Hemoglobin 32.1 pg (27.0-31.0); Mean Corpuscular Volume 95.6 fL (78.0-98.0); Mean Platelet Volume 6.7 fL (7.4-10.4); Platelet Count 187 thou/uL (130-400); RBC Distribution Width 12.5 % (11.5-14.5); Red Blood Cell (RBC) Count 3.19 mill/uL (4.70-6.10); White Blood Cell (WBC) Count 5.3 thou/uL (4.8-10.8)
[2019-12-08 06:33] LABS: Anion Gap 12 mmol/L (10-20); BUN (Urea Nitrogen) 20 mg/dL (8.4-25.7); Calc. Creatinine Clearance 56 mL/min (70-130); Calcium 8.3 mg/dL (7.8-10.44); Carbon Dioxide 22 mmol/L (23-31); Chloride 107 mmol/L (98-107); Estimated GFR-MDRD 63; Glucose 110 mg/dL (83-110); Sodium 137 mmol/L (136-145)
--- NOTE | 2019-12-08 10:07 | PDOC.HOSPP ---
- Subjective Encounter Date: 12/08/19 Encounter Time: 10:01 Subjective: no fever, chills. - Objective Vital Signs & Weight: Vital Signs (12 hours) Temp Pulse Resp BP BP Pulse Ox 12/08/19 07:34 99.3 F 85 14 114/68 96 12/08/19 04:00 98.7 F 81 20 125/76 97 12/08/19 00:54 98.1 F 76 20 125/75 97 Weight Weight 172 lb 6 oz Result Diagrams: 12/08/19 05:25 12/08/19 05:25 Hospitalist ROS - Medication Medications: Active Medications Generic Name Dose Route Start Last Admin Trade Name Freq PRN Reason Stop Dose Admin Sodium Chloride 1,000 mls @ 50 mls/hr 12/07/19 19:30 12/07/19 22:28 Normal Saline 0.9% IV 1,000 mls .Q20H VIKASH Administration Cefepime HCl 1 gm/ Sodium 100 mls @ 200 mls/hr 12/08/19 03:00 12/08/19 03:44 Chloride IVPB 100 mls 0300,1500 VIKASH Administration - Exam General Appearance: awake alert Neck: no JVD Heart: RRR, III/IV Respiratory: CTAB Gastrointestinal: soft, normal bowel sounds Extremities: 1+ LE edema Extremities - other findings: tender area R popliteal area, currently bandaged Hosp A/P (1) Cellulitis Code(s): L03.90 - CELLULITIS, UNSPECIFIED Status: Acute Qualifiers: Site of cellulitis of extremity: lower extremity Laterality: right (2) CAD (coronary artery disease) Code(s): I25.10 - ATHSCL HEART DISEASE OF [place] CORONARY ARTERY W/O ANG PCTRS Status: Acute Qualifiers: Coronary Disease-Associated Artery/Lesion type: [place] artery [place] vs. transplanted heart: [place] heart Associated angina: without angina Qualified Code(s): I25.10 - Atherosclerotic heart disease of [place] coronary artery without angina pectoris (3) Aortic stenosis Code(s): I35.0 - NONRHEUMATIC AORTIC (VALVE) STENOSIS Status: Acute (4) HTN (hypertension) Code(s): I10 - ESSENTIAL (PRIMARY) HYPERTENSION Status: Acute - Plan bennett current broad spectrum antibx discuss with Dr Anselmo joyce C&S results selected [facility] med[facility]
[2019-12-08 16:27] LABS: SARS-CoV-2 MS2 Positive; SARS-CoV-2 N Gene Negative; SARS-CoV-2 S Gene Negative; SARS-CoV-2 by NAA Not Detected (NotDetected); SARS-CoV-2 orf1ab Negative
--- NOTE | 2019-12-08 16:51 | PRG ---
DATE OF SERVICE: 12/08/2019 The patient has remained afebrile and feels much better today. He has walked around the halls without difficulty, feeling back to his old self. His wound was redressed today. On examination, he still has some mild swelling in his leg, although the redness and tenderness are resolved. We will go ahead and stop his fluids, give him a diet, and anticipate that another day or two of IV antibiotics, and if he continues to improve, should be able to go home on oral antibiotics. Job ID: [id number]
[2019-12-08] MEDS ORDERED: Vancomycin HCl 1.25 GM in Sodium Chloride 0.9% 250 ML 250 ML IVPB SCH (17:00)
[2019-12-08] MEDS: Famotidine 20 MG TAB PO SCH (20:49)
[2019-12-09] MEDS: Cefepime 1 GM in Sodium Chloride 0.9% 100 ML IVPB SCH (03:38)
--- NOTE | 2019-12-09 10:23 | PDOC.HOSPP ---
- Subjective Encounter Date: 12/09/19 Encounter Time: 10:07 Subjective: no fever, chills. some swelling in legs when dependent - Objective Vital Signs & Weight: Vital Signs (12 hours) Temp Pulse Resp BP BP Pulse Ox 12/09/19 08:00 97.6 F 76 18 110/73 98 12/09/19 07:28 97.6 F 76 18 110/73 100 12/09/19 04:00 97.5 F L 75 18 111/69 100 12/09/19 00:00 97.9 F 82 18 123/77 100 Weight Admit Weight 172 lb 6.4 oz Weight 172 lb 6 oz I&O: 12/08/19 12/09/19 12/10/19 06:59 06:59 06:59 Intake Total 720 Output Total 800 Balance -80 Result Diagrams: 12/08/19 05:25 12/08/19 05:25 Hospitalist ROS - Medication Medications: Active Medications Generic Name Dose Route Start Last Admin Trade Name Freq PRN Reason Stop Dose Admin Famotidine 20 mg 12/08/19 21:00 12/08/19 20:49 Famotidine 20 Mg Tab PO 20 mg QPM VIKASH Administration Cefepime HCl 1 gm/ Sodium 100 mls @ 200 mls/hr 12/08/19 03:00 12/09/19 03:38 Chloride IVPB 100 mls 0300,1500 VIKASH Administration Vancomycin HCl 1.25 gm/ Sodium 250 mls @ 166.667 mls/hr 12/08/19 17:00 12/08/19 16:16 Chloride IVPB 250 mls 1700 VIKASH Administration - Exam General Appearance: awake alert Neck: no JVD Heart: RRR, III/IV Respiratory: CTAB Gastrointestinal: soft, normal bowel sounds Extremities: 1+ LE edema Extremities - other findings: bandaged Hosp A/P (1) Cellulitis Code(s): L03.90 - CELLULITIS, UNSPECIFIED Status: Acute Qualifiers: Site of cellulitis of extremity: lower extremity Laterality: right (2) CAD (coronary artery disease) Code(s): I25.10 - ATHSCL HEART DISEASE OF [place] CORONARY ARTERY W/O ANG PCTRS Status: Acute Qualifiers: Coronary Disease-Associated Artery/Lesion type: [place] artery [place] vs. transplanted heart: [place] heart Associated angina: without angina Qualified Code(s): I25.10 - Atherosclerotic heart disease of [place] coronary artery without angina pectoris (3) Aortic stenosis Code(s): I35.0 - NONRHEUMATIC AORTIC (VALVE) STENOSIS Status: Acute Qualifiers: Cardiac valve disease etiology: nonrheumatic Qualified Code(s): I35.0 - Nonrheumatic aortic (valve) stenosis (4) HTN (hypertension) Code(s): I10 - ESSENTIAL (PRIMARY) HYPERTENSION Status: Chronic Qualifiers: Hypertension type: essential hypertension Qualified Code(s): I10 - Essential (primary) hypertension - Plan will transition to ceftriaxone, 2 more days iv anti bx selected home meds
[2019-12-09] MEDS: cefTRIAXone\\ROCEPHIN 2 GM in Sodium Chloride 0.9% 100 ML IVPB SCH (13:28)
--- NOTE | 2019-12-09 16:18 | PQF ---
CLINICAL DOCUMENTATION CLARIFICATION FORM: Dear Dr. JANIS CORBIN Date: 12-09-19 Please exercise your independent, professional judgment in responding to the clarification form. Clinical indicators are provided on the bottom of this form for your review. Please check appropriate box(es) to clarify if the following diagnosis has been ruled in our ruled out: SEPSIS [ ] Ruled in diagnosis [ ] Continue to treat [ ] Resolved [x ] Ruled out diagnosis [ ] Other diagnosis [ ] Unable to determine In addition, please specify: Present on Admission (POA): [ ] Yes [ ] No [ ] Unable to determine For continuity of documentation, please document condition throughout progress notes and discharge summary. Thank You. To be completed by CDI/Coding staff for physician review: CLINICAL INDICATORS - SIGNS / SYMPTOMS / LABS / RESULTS AND LOCATION IN MR: ER DX: 12-07-19: SEPSIS, POSSIBLE INFECTED HEMATOMA IN THE RLE, POSTOPERATIVE RLE CELLULITIS H&P 12-07-19: CELLULITIS VS INFECTED HEMATOMA TO RIGHT LOWER EXTREMITY. THE PATIENT ALSO STARTED ON IV ATBX WITH VANCOMYCIN AND CEFEPIME PER RECOMMENDATIONS BY DR. GARCIA. CULTURES SENT IN AND PENDING. LACTIC ACID HAS IMPROVED, MILD DIABETIC KETOACIDOSIS. LACTIC ACID: 12-07-19: 2.3 RISK FACTORS / RESULTS AND LOCATION IN MR: [id number]: SWELLING TO RLE AND SEROSANGUINEOUS DRAINAGE FROM RECENT GRAFT SITE, AGE TREATMENTS / RESULTS AND LOCATION IN MR: H&P 12-07-19: STARTED ON IV ATBX WITH VANCOMYCIN AND CEFEPIME PER RECOMMENDATIONS BY DR. GARCIA. CULTURES SENT IN AND PENDING. CDS Signature: More Cleo Phone #: [phone] Date: 12-09-19 This is a permanent part of the Medical Record [facility]
--- NOTE | 2019-12-09 16:28 | PQF ---
CLINICAL DOCUMENTATION CLARIFICATION FORM: Dear Dr. JANIS CORBIN Date: 12-09-19 Please exercise your independent, professional judgment in responding to the clarification form. Clinical indicators are provided on the bottom of this form for your review. Please check appropriate box(es): [ x ] Acute Renal Failure (ARF) / Acute Kidney Injury (RANJIT) [ ] Insignificant Lab Values [ ] Other diagnosis [ ] Unable to determine In addition, please specify: Present on Admission (POA): [ ] Yes [ ] No [ ] Unable to determine For continuity of documentation, please document condition throughout progress notes and discharge summary. Thank You. To be completed by CDI/Coding staff for physician review: CLINICAL INDICATORS - SIGNS / SYMPTOMS / LABS / RESULTS AND LOCATION IN MR: GFR: 12-07-19: 47 12-08-19: 63 CREATININE: 12-07-19: 1.43 12-08-19: 1.11 BUN: 12-07-19: 25 RISK FACTORS / RESULTS AND LOCATION IN MR: H&P 12-07-19: MILD DIABETIC KETOACIDOSIS. CREATININE SLIGHTLY BUMPED ON LAST ADMISSION. HE RECEIVED 100 ML OF NS IN THE ER. WE WILL CONTINUE VERY GENTLE HYDRATION AND CONTINUE TO MONITOR RENAL FUNCTION. TREATMENTS / RESULTS AND LOCATION IN MR: H&P 12-07-19: HE RECEIVED 100 ML OF NS IN THE ER. WE WILL CONTINUE VERY GENTLE HYDRATION AND CONTINUE TO MONITOR RENAL FUNCTION. National Kidney Foundation Guidelines for CKD Staging Stage I Kidney damage with normal or increased GFR GFR > 90 Stage II Kidney damage with mildly decreased GFR GFR 60-89 Stage III Kidney damage with moderately decreased GFR GFR 30-59 Stage IV Kidney damage with severely decreased GFR GFR 16-29 Stage V Kidney failure GFR<15 ESRD End Stage Renal Disease On dialysis Acute Renal Failure/Acute Kidney Failure defined as: Increases in SCr by (>) 0.3 mg/dl within 48 hours OR- Increases in SCr by (>) 1.5 times baseline, known or presumed to have occurred within the prior 7 days OR- Urine volume < 0.5 ml/kg/hour for 6 hours (KDIGO supplement 2012 for RIFLE/IRAIS criteria) CDS Signature: More Gallo Phone #: [phone] Date: 12-09-19 This is a permanent part of the Medical Record [facility]
[2019-12-09] MEDS: Fish Oil 1,000 MG CAP PO SCH (20:40)
[2019-12-09] MEDS: Famotidine 20 MG TAB PO SCH (20:40)
[2019-12-09] MEDS ORDERED: Multivit, Therapeutic 1 TAB PO SCH (21:00)
[2019-12-10] MEDS: Fish Oil 1,000 MG CAP PO SCH (08:20)
[2019-12-10] MEDS ORDERED: Cholecalciferol 1,000 UNITS (25 MCG) TAB PO SCH (09:00)
[2019-12-10] MEDS ORDERED: Ubidecarenone 50 MG CAP PO SCH (09:00)
[2019-12-10] MEDS ORDERED: Non-Formulary Item 1 EACH (L.Acidoph,Paracasei, B.Lactis [Probiotic] 1 EACH Capsule) PO SCH (09:00)
[2019-12-10] MEDS ORDERED: Aspirin 81 mg Enteric Coated Tablet PO SCH (09:00)
[2019-12-10 12:05] VITALS: BP 127/77; TEMP 97.8
[2019-12-10] MEDS: cefTRIAXone\\ROCEPHIN 2 GM in Sodium Chloride 0.9% 100 ML IVPB SCH (13:57)
--- NOTE | 2019-12-11 07:33 | DIS ---
DATE OF ADMISSION: 12/07/2019 DATE OF DISCHARGE: 12/10/2019 PRIMARY CARE PROVIDER: Darío Novoa MD DISPOSITION: Discharged home. FINAL DIAGNOSES: Cellulitis, abscess, right lower leg, coronary artery disease, post coronary artery bypass graft, nonrheumatic aortic stenosis, essential hypertension. DISCHARGE MEDICATIONS: 1. Omnicef 300 mg p.o. b.i.d. 2. Metoprolol 12.5 mg a day. 3. Multivitamin. 4. Coenzyme Q10, 200 mg a day. 5. Aspirin 81 mg a day. 6. Another vitamin tablet. 7. Vision vitamins. 8. Vitamin D3, 2500 units a day. 9. Nexium 40 mg at bedtime. 10. Fish oil 1100 mg p.o. b.i.d. 11. Probiotic 1 tablet daily. ALLERGIES: NO KNOWN DRUG ALLERGIES. CODE STATUS: Full. PENDING AT TIME OF DISCHARGE: Blood cultures are no growth at 48 hours. DIET: Heart healthy. HOSPITAL COURSE: The patient admitted through the emergency department to the hospitalist service. The patient had been seen by Dr. Briones, Cardiovascular Surgery, post coronary artery bypass graft. He had drainage from a recent graft site. He was sent to the hospital for treatment as he did have a temperature of 101. He was seen in consultation by Dr. Briones, Cardiovascular Surgery. He had normal white count with absolute neutrophilia 9.6, platelet count 269,000, hemoglobin 12.3. His comp metabolic profile initially showed a creatinine of 1.43. Fluids came down to 1.11. Had elevated lactic acid of 2.3, minimal followup was 0.9. He was COVID negative. He received IV antibiotics. His wound culture grew Escherichia coli and Serratia marcescens, both sensitive to ceftriaxone and Omnicef. He received wound care per Dr. Briones. His has been instructed in wound care. He will be sent home on Omnicef 300 mg p.o. b.i.d. for 10 days. He is on a probiotic. I have asked that his followup be arranged with Dr. Briones since he was referred to the hospital by Dr. Briones. PROCEDURES: None. Wound care by the . Job ID: [id number]
== END 2019-12-10 14:32 | disposition home or self-care (01) | DRG 863 ==
LOC: ERS 14:08 → T4-A 19:16
PROVIDERS: ADMIT Internal Medicine; ATTEND Internal Medicine
DX: T81.49XA Infection following a procedure, other surgical site, initial encounter (principal); L03.115 Cellulitis of right lower limb; N17.9 Acute kidney failure, unspecified; L02.415 Cutaneous abscess of right lower limb; T81.31XA Disruption of external operation (surgical) wound, not elsewhere classified, initial encounter; Z20.828 Contact with and (suspected) exposure to other viral communicable diseases; I44.7 Left bundle-branch block, unspecified; I25.10 Atherosclerotic heart disease of native coronary artery without angina pectoris; Y83.2 Surgical operation with anastomosis, bypass or graft as the cause of abnormal reaction of the patient, or of later complication, without mention of misadventure at the time of the procedure; I35.0 Nonrheumatic aortic (valve) stenosis; I10 Essential (primary) hypertension; Z86.73 Personal history of transient ischemic attack (TIA), and cerebral infarction without residual deficits; Z86.718 Personal history of other venous thrombosis and embolism; Z90.89 Acquired absence of other organs; Z85.828 Personal history of other malignant neoplasm of skin; Z92.3 Personal history of irradiation; Z90.49 Acquired absence of other specified parts of digestive tract; Z95.1 Presence of aortocoronary bypass graft; Z79.82 Long term (current) use of aspirin
CPT/HCPCS: 36415; 71045; 80048; 80053; 81003; 83605; 83735; 83880; 85025; 87040; 87070; 87077; 87186; 87205; 87635; 93005; 96365; 96366; 96367; J0692; J0696; J3370; J3490; J7030; J7050; Q9967; U0003

== ENCOUNTER 2020-06-05 15:51 | Observation (INO) | payer MEDICARE, OTHER ==
[2020-06-05 16:24] LABS: #Eosinphils 0.3 thou/uL (0.0-0.7); #Lymphocytes 2.2 thou/uL (1.20-3.40); #Monocytes 0.6 thou/uL (0.11-0.59); #Neutrophils 2.8 thou/uL (1.40-6.50); %Basophils 0.5 % (0.0-1.0); %Eosinophils 4.4 % (0.0-10.0); %Lymphocytes 37.5 % (21.0-51.0); %Monocytes 10.9 % (0.0-10.0); %Neutrophils 46.8 % (42.0-75.0); Hemoglobin 14.4 g/dL (14.0-18.0); Mean Corpuscular HGB CONC 34.6 g/dL (32.0-36.0); Mean Corpuscular Hemoglobin 31.9 pg (27.0-31.0); Mean Corpuscular Volume 92.2 fL (78.0-98.0); Mean Platelet Volume 7.6 fL (7.4-10.4); Platelet Count 130 thou/uL (130-400); Red Blood Cell (RBC) Count 4.51 mill/uL (4.70-6.10); White Blood Cell (WBC) Count 5.9 thou/uL (4.8-10.8)
[2020-06-05 16:46] LABS: ALT (SGPT) 19 U/L (8-55); AST (SGOT) 24 U/L (5-34); Albumin 4.1 g/dL (3.4-4.8); Alkaline Phosphatase 96 U/L (40-110); Anion Gap 17 mmol/L (10-20); BUN (Urea Nitrogen) 22 mg/dL (8.4-25.7); CK (CPK) 103 U/L (30-200); Calc. Creatinine Clearance 0 mL/min (70-130); Calcium 9.1 mg/dL (7.8-10.44); Carbon Dioxide 19 mmol/L (23-31); Chloride 108 mmol/L (98-107); Globulin 2.9 g/dL (2.4-3.5); Glucose 99 mg/dL (83-110); Magnesium 1.9 mg/dL (1.6-2.6); Potassium 4.5 mmol/L (3.5-5.1); Sodium 139 mmol/L (136-145)
[2020-06-05 17:08] LABS: CKMB 3.2 ng/mL (0-6.6)
[2020-06-05] MEDS ORDERED: Acetaminophen 325 MG TAB PO PRN (19:57)
[2020-06-05] MEDS ORDERED: Ondansetron PF 4 MG/2 ML Vial IVP PRN (19:57)
[2020-06-05 19:59] LABS: Bilirubin Negative (Negative); Blood, Urine Negative (Negative); Clarity Clear (Clear); Glucose, Urine (Dipstick) Normal (Negative); Ketone, Urine Negative (Negative); Leukocyte Negative Leu/uL (Negative); Nitrite Negative (Negative); Protein, Urine (Dipstick) Negative (Neg-Trace); Specific Gravity, Urine 1.019 (1.002-1.036); Urobilinogen Normal mg/dL (Less than 2); pH, Urine 5.5 (5.0-9.0)
[2020-06-05 21:13] VITALS: BMI 28.2
[2020-06-06 00:12] LABS: Troponin I 0.031 ng/mL (< 0.028)
[2020-06-06] MEDS ORDERED: Magnesium Oxide 400 MG TAB PO SCH (05:00)
[2020-06-06 05:02] LABS: #Eosinphils 0.3 thou/uL (0.0-0.7); #Lymphocytes 1.6 thou/uL (1.20-3.40); #Monocytes 0.6 thou/uL (0.11-0.59); #Neutrophils 2.5 thou/uL (1.40-6.50); %Basophils 0.7 % (0.0-1.0); %Eosinophils 5.3 % (0.0-10.0); %Lymphocytes 31.8 % (21.0-51.0); %Neutrophils 51.2 % (42.0-75.0); Hemoglobin 13.6 g/dL (14.0-18.0); Mean Corpuscular HGB CONC 34.3 g/dL (32.0-36.0); Mean Corpuscular Hemoglobin 31.9 pg (27.0-31.0); Mean Corpuscular Volume 93.1 fL (78.0-98.0); Mean Platelet Volume 7.2 fL (7.4-10.4); Platelet Count 115 thou/uL (130-400); RBC Distribution Width 13.2 % (11.5-14.5); Red Blood Cell (RBC) Count 4.26 mill/uL (4.70-6.10); White Blood Cell (WBC) Count 4.9 thou/uL (4.8-10.8)
[2020-06-06 05:20] LABS: Anion Gap 14 mmol/L (10-20); BUN (Urea Nitrogen) 18 mg/dL (8.4-25.7); Calc. Creatinine Clearance 60 mL/min (70-130); Calcium 8.6 mg/dL (7.8-10.44); Carbon Dioxide 22 mmol/L (23-31); Chloride 108 mmol/L (98-107); Glucose 90 mg/dL (83-110); Magnesium 1.8 mg/dL (1.6-2.6); Sodium 140 mmol/L (136-145)
[2020-06-06 05:23] LABS: SARS-CoV-2 PCR by NAA Not Detected (NotDetected)
[2020-06-06] MEDS ORDERED: Non-Formulary Item 1 EACH (Esomeprazole Magnesium [Nexium] 40 MG Cap) PO SCH (07:30)
[2020-06-06] MEDS ORDERED: Cholecalciferol 1,000 UNITS (25 MCG) TAB PO SCH ×2 (09:00→21:00)
[2020-06-06] MEDS ORDERED: [UNRECOGNIZED DRUG - MIXTURE] PO SCH (09:00)
[2020-06-06] MEDS ORDERED: Aspirin 81 mg Enteric Coated Tablet PO SCH ×2 (09:00)
[2020-06-06] MEDS ORDERED: Non-Formulary Item 1 EACH (Cholecalciferol (Vitamin D3) [Vitamin D3] 1,000 UNIT Capsule) PO SCH (09:00)
[2020-06-06] MEDS ORDERED: Multivit, Therapeutic 1 TAB PO SCH ×2 (09:00→21:00)
[2020-06-06] MEDS ORDERED: Non-Formulary Item 1 EACH (Ubidecarenone [Co Q-10] 200 MG Capsule) PO SCH (09:00)
[2020-06-06] MEDS ORDERED: Non-Formulary Item 1 EACH (L.Acidoph,Paracasei, B.Lactis [Probiotic] 1 EACH Capsule) PO SCH (09:00)
[2020-06-06] MEDS ORDERED: Lactinex Tablet PO SCH (09:00)
[2020-06-06] MEDS ORDERED: Non-Formulary Item 1 EACH (Multivitamin [Daily Multiple Vitamin] 1 EACH Tablet) PO SCH (09:00)
[2020-06-06] MEDS ORDERED: Fish Oil 1,000 MG CAP PO SCH (09:00)
[2020-06-06] MEDS ORDERED: Vit A,C & E/Lutein/Minerals Tablet PO SCH ×2 (09:00→21:00)
[2020-06-06 16:31] VITALS: BP 141/73; TEMP 97.9
[2020-06-06] MEDS ORDERED: Atorvastatin Calcium 20 MG TAB PO SCH (21:00)
[2020-06-08] MEDS ORDERED: Enoxaparin Sodium 40 MG/0.4 ML SYRINGE SC SCH (09:00)
== END 2020-06-06 17:22 | disposition home or self-care (01) ==
LOC: ERS 15:51 → 2SW 19:57
PROVIDERS: ADMIT Internal Medicine; ATTEND Internal Medicine
DX: I49.3 Ventricular premature depolarization (principal); R77.8 Other specified abnormalities of plasma proteins; I25.10 Atherosclerotic heart disease of native coronary artery without angina pectoris; I10 Essential (primary) hypertension; I35.0 Nonrheumatic aortic (valve) stenosis; E78.5 Hyperlipidemia, unspecified; Z86.73 Personal history of transient ischemic attack (TIA), and cerebral infarction without residual deficits; Z79.82 Long term (current) use of aspirin; Z79.899 Other long term (current) drug therapy; Z95.1 Presence of aortocoronary bypass graft; Z20.822 Contact with and (suspected) exposure to COVID-19
CPT/HCPCS: 71045; 80048; 81003; 82550; 82553; 83735 ×2; 83880; 84484 ×2; 85025; 93005; 93306; 99285; U0003; U0005; 36415; 80053; 84443; 87635; G0378

== ENCOUNTER 2022-04-10 12:38 | Outpatient (CLI) | payer MEDICARE, OTHER ==
[2022-04-10] MEDS ORDERED: Magnevist 469MG/ML 20 ML VIAL ONE (12:45)
== END 2022-04-10 12:39 | disposition home or self-care (01) ==
LOC: TBSIIMAG 12:38
PROVIDERS: ATTEND Urology
DX: R97.20 Elevated prostate specific antigen [PSA] (principal)
CPT/HCPCS: 72197; A9579